=== PATIENT | male | born 1985 | race Caucasian/White ===

== ENCOUNTER 2023-05-26 15:30 | Emergency (ER) | payer SELFPAY ==
[~2023-05-26] VITALS: Ht 182.8 cm; Wt 113.4 kg
[2023-05-26] MEDS ORDERED: FLUORESCEIN SODIUM 1 MG STRIP OPH ONE (15:50)
[2023-05-26] MEDS ORDERED: Tetracaine Hydrochloride 0.5% 4 ML BOT OPH ONE (15:50)
== END 2023-05-26 17:12 | disposition home or self-care (01) ==
LOC: ED 15:30
DX: H20.9 Unspecified iridocyclitis (principal); Z91.040 Latex allergy status